=== PATIENT | male | born 1970 | race Caucasian/White ===

== ENCOUNTER 2024-07-13 09:31 | Outpatient (CLI) | payer OTHER, SELFPAY ==
[2024-07-13 18:30] LABS: Basophils % 0.7 % (0.1-2.0); Eosinophils # 0.2 Kmm3 (0.0-0.4); Eosinophils % 3.8 % (0.1-12.0); Hemoglobin 8.2 g/dL (14.1-18.0); Immature Granulocytes # 0.01 10^3uL; Immature Granulocytes % 0.2 %; Lymphocytes # 1.4 K/mm3 (0.7-4.5); Lymphocytes % 33.9 % (10-50); Mean Corpuscular HGB Conc 37.3 g/dL (31.8-35.4); Mean Corpuscular Hemoglobin 39.6 pg (27.0-31.2); Mean Corpuscular Volume 106.3 fl (80-94); Mean Platelet Volume 11.2 fl (7.4-10.4); Monocytes # 0.4 K/mm3 (0.1-1.0); Monocytes % 9.1 % (1.7-9.3); Neutrophils # 2.2 K/mm3 (1.8-7.8); Neutrophils % 52.3 % (37.0-80.0); Nucleated Red Blood Cells # 0 10^3/uL; Nucleated Red Blood Cells % 0 %; Platelet Count 70 K/mm3 (142-424); Red Blood Count 2.07 M/mm3 (4.60-6.20); Red Cell Distribution Width 16.7 % (11.5-17.5); Red Cell Distribution Width-SD 63.8 fL; White Blood Count 4.2 K/mm3 (4.8-10.8)
[2024-07-13 19:54] LABS: Alanine Aminotransferase 15 U/L (12-78); Albumin Level 2.7 g/dl (3.5-5.0); Anion Gap 10.4 mEq/L (5-15); Aspartate Amino Transferase 44 U/L (17-59); Bilirubin,Total 0.6 mg/dl (0.2-1.3); Blood Urea Nitrogen 6 mg/dl (9-20); Calcium 7.8 mg/dl (8.4-10.2); Carbon Dioxide 22 mmol/L (22.0-30.0); Chloride 100 mmol/L (98-107); Estimated Glomerular Filt Rate 118 ml/min (>60); GFR (African American) 143 ML/MIN (>60); Globulin 3.3 g/dL (1.3-3.2); Glucose 78 mg/dl (74-100); Potassium 4.4 mmoL/L (3.5-5.1); Sodium 128 mmol/L (136-145)
[2024-07-13 19:55] LABS: Albumin/Globulin Ratio 0.8 (1.1-1.8); Alkaline Phosphatase 195 U/L (38-126); Chol/HDL Ratio 4.3 (1-3.5); Cholesterol 65 mg/dl (140-200); HDL Cholesterol 15 mg/dl (40-60); Triglycerides 124 mg/dl (30-150); VLDL Cholesterol 25 mg/dL (0-40)
[2024-07-13 20:06] LABS: Direct LDL Cholesterol 32.24 mg/dL (100-129)
[2024-07-13 20:26] LABS: Prostate Specific Ag Screen 0.9 ng/ml (0.0-4.0); Thyroid Stimulating Hormone 3.87 uIU/mL (0.465-4.68)
[2024-07-13 20:45] LABS: Vitamin B12 775 pg/mL (239-931)
[2024-07-18 06:15] LABS: Hemoglobin A1C < 4.2 % (4.0-6.0)
== END 2024-07-13 23:59 | disposition home or self-care (01) ==
LOC: LAB.DROPOF 07-16 09:32
PROVIDERS: PCP Family Medicine; Visit Provider Family Medicine
DX: M79.89 Other specified soft tissue disorders (principal); K22.70 Barrett's esophagus without dysplasia; R10.9 Unspecified abdominal pain; R63.4 Abnormal weight loss
CPT/HCPCS: 80053; 80061; 82607; 83036; 84443; 85025; G0103

== ENCOUNTER 2024-08-01 07:33 | Outpatient (CLI) | payer OTHER, SELFPAY ==
--- OUTSIDE RECORDS SUMMARY | 2024-08-01 07:35 | XMS_ITS | Clinical Summary ---
Author Organization [facility] [place] [address] Care Team Providers Care Mud Mixer Operator Name Role Phone Unavailable Primary Care Provider Unavailabl e Social History Tobacco Use Types Packs/Day Years Used Date Smoking Tobacco: Never Assessed Sex and Gender Information Value Date Recorded Sex Assigned at Not on file Legal Sex Male 4:05 PM EDT Gender Identity Not on file Sexual Orientation Not on file Plan of Treatment Health Maintenance Due Date Last Done Comments Annual Wellness Exam 1973 DTaP/TDaP/Td (1 - Tdap) 1989 Hepatitis B Vaccine (1 of 3 - 19+ 3-dose series) 1989 Cologuard 11/16/2015 Colon Cancer Screening 11/16/2015 Colonoscopy 11/16/2015 FIT 11/16/2015 Sigmoidoscopy 11/16/2015 Virtual Colonography 11/16/2015 Pneumococcal Vaccine 50+ (1 of 1 - PCV) 2020 Zoster (1 of 2) 2020 COVID-19 Vaccine (1 - 2023-2 5 season) 2023 Influenza Vaccine (Season Ended) 2024 Meningococcal B Vaccine Aged Out No l onger eligible based on patient's age to complete this topic
--- OUTSIDE RECORDS SUMMARY | 2024-08-01 07:35 | XMS_ITS | Clinical Summary ---
Author Organization Healthcare Address [address] [place] [address] Care Team Providers Care Die Engraver Name Role Phone Earnest Monroe MD Primary Care Provider [phone] Family History Medical History Relation Name Comments Conversions - Other Father Hepatiti s C reactive Other cancer Maternal Grandmother Diabetes Mother Conversions - Other Mother's Sister 1 Can cer of bone Breast cancer Mother's Sister 2 Relation Name Status Comments Father Maternal Grandmother Mother Mother's Sister 1 Mother's Sister 2 Social History Tobacco Use Types Packs/Day Years Used Date Smoking Tobacco: Every Day Alcohol Use Standard Drinks/Week Comments Yes 0 (1 standard drink = 0.6 oz pure alcohol) Alcoholic Drinks/day: Moderate alcohol use Sex and Gender Information Value Date Recorded Sex Assigned at Not on file Legal Sex Male 6:30 PM EDT Gender Identity Not on file Sexual Orientation Not on file Last Filed Vital Signs Vital Sign Reading Time Taken Comments Blood Pressure - - Pulse - - Temperature - - Respiratory Rate - - Oxygen Saturation - - Inhaled Oxygen Concentration - - Weight 73 kg (161 lb) 10/17/2013 1:42 PM EDT Height 180.3 cm (5' 11 ) 10/17/2013 1:42 PM EDT Body Mass Index 22.46 10/17/2013 1:42 PM EDT Plan of Treatment Not on file Care Teams Die Engraver Relationship Specialty Start Date End Date Earnest Monroe MD [address] [place] [id number] PCP - General 06/27/20
[2024-08-01] MEDS: IOPAMIDOL-370 (76%);100ML BOTTLE 75 ML IV (07:56)
[2024-08-01] MEDS: SODIUM CHLORIDE 0.9% 10ML SYR (RAD ONLY) 10 ML IV (07:56)
[2024-08-01] MEDS: BARIUM SULFATE(READI-CAT2);450ML BOTTLE 450 ML PO (07:56)
--- NOTE | 2024-08-01 08:00 | CT_ITS ---
FINAL REPORT TECHNIQUE: The patient was injected with IV contrast. Axial images were obtained of the chest by computed tomography. Precontrast images were also obtained. This study was performed with techniques to keep radiation doses as low as reasonably achievable (ALARA). Individualized dose reduction techniques using automated exposure control or adjustment of mA and/or kV according to the patient's size were employed. CLINICAL HISTORY: wt loss; acuña s esophagus; abd. pain COMPARISON: None FINDINGS: CT OF THE CHEST WITH AND WITHOUT CONTRAST: Pre infusion images demonstrate calcified right hilar and precarinal lymph nodes. Post infusion images demonstrate the mediastinal vasculature enhances in a proper fashion. Heart size is normal. There is no pericardial or pleural effusion identified. There is a small noncalcified irregular density in the posterior right upper lobe measuring 7 mm on image 30 of series 8. Scarring is noted at the right lung base. IMPRESSION: Irregular density posterior right upper lobe. Recommend follow-up CT scan in 3 months per Fleischner criteria. Reviewed, Interpreted and Dictated by Chico Shell MD Transcribed by Veronique Meier Authenticated and . [facility]
--- NOTE | 2024-08-01 08:45 | CT_ITS ---
FINAL REPORT TECHNIQUE: Pre-and postcontrast axial CT images of the abdomen and pelvis were obtained. Coronal reformatted images were also obtained and reviewed. This study was performed with techniques to keep radiation doses as low as reasonably achievable (ALARA). Individualized dose reduction techniques using automated exposure control or adjustment of mA and/or kV according to the patient's size were employed. CLINICAL HISTORY: wt loss; Alfredo s esophagus; abd. pain COMPARISON: None FINDINGS: Pre infusion images demonstrate no evidence of kidney stones. On post infusion images, the liver is homogeneous. The gallbladder is unremarkable. Calcified granulomas are seen in the spleen. The pancreas, adrenal glands, and kidneys are unremarkable. There is diffuse mucosal thickening throughout the colon consistent with acute infectious/inflammatory colitis. The appendix is unremarkable. The urinary bladder is unremarkable. IMPRESSION: Acute infectious/inflammatory colitis. Reviewed, Interpreted and Dictated by Chico Shell MD Transcribed by Veronique Meier Authenticated and [facility]
== END 2024-08-01 23:59 | disposition home or self-care (01) ==
LOC: RAD 07:33
PROVIDERS: PCP Family Medicine; Visit Provider Family Medicine
DX: A09 Infectious gastroenteritis and colitis, unspecified (principal); R91.8 Other nonspecific abnormal finding of lung field; K22.70 Barrett's esophagus without dysplasia; R63.4 Abnormal weight loss
CPT/HCPCS: 71270; 74178; Q9967

== ENCOUNTER 2024-09-05 19:10 | Outpatient (CLI) | payer OTHER, SELFPAY ==
[2024-09-05 19:13] LABS: Adenovirus F 40/41, stool Not Detected (NotDetected); Clostridium Difficile A/B, PCR Not Detected (NotDetected); Cyclospora Cayetanesis Not Detected (NotDetected); Plesimonas Shigalloides, PCR Not Detected (NotDetected); Salmonella, PCR Not Detected (NotDetected); Shiga-like toxin E coli Not Detected (NotDetected); Shigella Enterovasive E coli Not Detected (NotDetected); Vibrio, PCR Not Detected (NotDetected); Yersinia Entercolitica, PCR Not Detected (NotDetected)
--- OUTSIDE RECORDS SUMMARY | 2024-09-11 12:07 | XMS_ITS | Clinical Summary ---
Author Organization [facility] [place] [address] Care Team Providers Care Busser Name Role Phone Unavailable Primary Care Provider [...] - 2023-2 5 season) 2023 Influenza Vaccine (#1) 2024 Meningococcal B Vaccine Aged Out No l onger eligible based on patient's age to complete this topic
--- OUTSIDE RECORDS SUMMARY | 2024-09-11 12:07 | XMS_ITS | Clinical Summary ---
Author Organization Healthcare Address [address] [place] [address] Care Team Providers Care Entry Engineer Name Role Phone Earnest Monroe MD Primary Care Provider [phone] Family History Medical History Relation Name Comments [...] of Treatment Not on file Care Teams Entry Engineer Relationship Specialty Start Date End Date Earnest Monroe MD [address] [place] [id number] PCP - General 06/27/20
== END 2024-09-05 23:59 | disposition home or self-care (01) ==
LOC: LAB.DROPOF 09-11 12:05
PROVIDERS: PCP Nurse Practitioner Family; Visit Provider Nurse Practitioner Family
DX: R19.7 Diarrhea, unspecified (principal)

== ENCOUNTER 2024-09-20 11:05 | Day surgery (SDC) | payer OTHER, SELFPAY ==
[2024-09-11 10:52] VITALS: BMI 17.0
[2024-09-20 12:06] VITALS: BP 148/80; PULSE 84; RESP 18; TEMP 36.8; O2SAT 98
[2024-09-20] MEDS: LACTATED RINGERS 1000ML 1,000 ML 50 ML IV (12:17)
--- NOTE | 2024-09-20 12:46 | EXP.HP ---
History of Present Illness *Admission Date: 09/20/24 *History of present illness: Mrs. Hebert is a 53-year-old female who is here for diagnostic EGD and colonoscopy. 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 She has had a 50 pound weight loss over the last couple of years with reduced appetite. She does state that she is gastric discomfort. She began having diarrhea about a year ago and does have some fecal incontinence with urgency. Her CAT scan showed mucosal thickening throughout the colon. The examination is deemed medically necessary for diagnostic EGD and colonoscopy. The patient has been seen, interviewed and examined prior to the procedure by both myself and the anesthesia provider. [facility] Disclaimer: The information contained in this section may have been updated after the patient was seen, as this information can be updated by other users. Medical History (Updated 09/20/24 @ 12:47 by Rancho Pereyra II, MD) Protein calorie malnutrition Abdominal pain Barretts esophagus Weight loss Surgical History No significant past surgical history Family History Other Cancer Diabetes Hypertension Social History (Updated 09/20/24 @ 12:58 by Oniel Lorenz CRNA) Smoking Status: Current every day smoker tobacco type: cigarettes alcohol intake: current alcohol intake frequency: 3 or more drinks per day substance use type: denies use current occupational status: unemployed Travel in the last 8 weeks?: None caffeine: No Have you lived/traveled outside US in past 30 days?: No Contact w/someone who lives/traveled outside US past 30 days?: No Exposure to someone with infectious disease in past 14 days?: No Do you have a fever (greater than 100.4 F or 38 C)?: No Have you tested positive for COVID-19?: No Exposed to someone with COVID-19 in past 14 days?: No Do you have a sore throat?: No Do you have a cough?: No Do you have any weakness?: No Are you experiencing any nausea/vomitting?: No Do you have any diarrhea?: No Are you experiencing any unusual bleeding?: No Do you have any muscle aches/pain?: No Do you have any abdominal pain?: No Are you experiencing loss of taste or smell?: No Other Medical History Have you received the Flu Vaccine for this season: No Review of Systems Review of Systems Review of systems (narrative): Negative *Cardiovascular Comments: Negative *Gastrointestinal Comments: Negative *Genitourinary Comments: Negative *Musculoskeletal Comments: Negative *Neurologic Comments: Negative Meds Home Medications and Allergies Home Medications ?Medication ?Instructions ?Recorded ?Confirmed ?Type albuterol sulfate 90 mcg/actuation 2 puff inhalation QID PRN 07/13/24 09/20/24 Rx aerosol inhaler shortness of breath or wheezing #8.5 grams pantoprazole 40 mg tablet,delayed 40 mg PO DAILY #90 tabs 07/13/24 09/20/24 Rx release (Protonix) New Prescriptions to Start Prescriptions: Allergies Allergy/AdvReac Type Severity Reaction Status Date / Time No Known Allergies Allergy Verified 09/20/24 12:04 Exam Data for Last 24 hours Vital signs and Labs for Last 24 Hours: Temp Pulse Resp BP Pulse Ox O2 Del Method 98.2 F 84 18 148/80 H 98 Room Air 09/20/24 12:06 09/20/24 12:06 09/20/24 12:06 09/20/24 12:06 09/20/24 12:06 09/20/24 12:06 *Routine HEENT Exam Head: Present normocephalic Eye: Present EOMI and PERRL ENT: Present mucous membranes moist *Routine Neck Exam Neck: Present supple *Routine Respiratory Exam Respiratory: Present CTA bilaterally *Routine Cardiovascular Exam Cardiovascular: Present RRR *Routine Abdominal Exam Abdominal: Present soft and normoactive bowel sounds; Absent tenderness *Routine Rectal Exam Rectal:: deferred *Routine Genitalia Exam Genitalia:: deferred *Routine Extremities Exam Extremities: Absent cyanosis, clubbing or edema *Routine Skin Exam Skin: Present warm; Absent rash *Routine Neurological Exam Neurological: Present alert and oriented X3 Assessment and Plan *Assessment and plan (1) Diarrhea: Status: Acute Category: Medical Code(s): R19.7 - Diarrhea, unspecified (2) Change in bowel habits: Status: Acute Category: Medical Code(s): R19.4 - Change in bowel habit (3) Loss of appetite: Status: Acute Category: Medical Code(s): R63.0 - Anorexia (4) Barretts esophagus: Status: Acute Category: Medical Code(s): K22.70 - Alfredo's esophagus without dysplasia (5) Weight loss: Status: Acute Category: Medical Code(s): R63.4 - Abnormal weight loss (6) Abdominal pain: Status: Acute Category: Medical Code(s): R10.9 - Unspecified abdominal pain (7) Abnormal CT scan, colon: Status: Acute Category: Medical Code(s): R93.3 - Abnormal findings on diagnostic imaging of other parts of digestive tract Plan A/P: 1. Alfredo's esophagus with loss of appetite and abdominal pain for upper endoscopy and change in bowel habits, diarrhea and abnormal CAT scan of colon for colonoscopy is the preprocedural diagnosis. The patient will be anesthetized/sedated using MAC sedation. The patient has been seen and examined. Cardiac and lung assessment prior to the examination is stable. Proceed with planned diagnostic EGD and colonoscopy.
--- NOTE | 2024-09-20 12:58 | P.PNANES_ITS ---
[facility] Disclaimer: The information contained in this section may have been updated after the patient was seen, as this information can be updated by other users. Medical History (Updated 09/20/24 @ 12:47 by Rancho Pereyra II, MD) Protein calorie malnutrition Abdominal pain Barretts esophagus Weight loss Surgical History No significant past surgical history Family History Other Cancer Diabetes Hypertension Social History (Updated 09/20/24 @ 12:15 by Barby Umaña, SHERIN) Smoking Status: Current every day smoker tobacco type: cigarettes alcohol intake: current alcohol intake frequency: 3 or more drinks per day substance use type: denies use current occupational status: unemployed Travel in the last 8 weeks?: None caffeine: No [facility] Anesthesia Checklist Patient Identification Patient Identification: Arm Band Structural Data Admitted From: Home Planned Operative Procedure/s: EGD/Colonoscopy Consent for Planned Operative Procedure(s) Verified: Yes Verified Documents: Surgical Consent and History and Physical NPO Status Verified Time NPO: 00:00 Additional verifications Anesthesia Reactions: No Airway Assessment Mallampati Score:: Class II C-Spine Mobility Assessed: Yes TMJ Mobility Assessed: Yes Dentition: Edentulous Neurological Assessment Level of Consciousness: Awake, Alert and Appropriate Anesthesia Plan Anesthesia Risk discussed: Yes Anesthesia Plan: Verified ASA Class: II Anesthesia Type: MAC
--- NOTE | 2024-09-20 13:01 | HMH.PROCNOTE ---
[facility] Procedure Note Date: 09/20/24 Procedure Note:: Upper Endoscopy Procedure Report: Esophagogastroduodenoscopy with cold biopsies Endoscopost: Rancho Pereyra II, MD Referring Physician: Desmond Donohue MD Date of Procedure: September 20, 2024 Equipment: Olympus GIF-1100 standard upper endoscope Sedation: MAC sedation Indications: Mr. Hebert is a 53-year-old gentleman who is here for diagnostic EGD and colonoscopy. The patient does have a history of Alfredo's esophagus diagnosed approximately 15 years ago. His last EGD was with Dr. Jose Roberts M.D. in 2018. He has been on pantoprazole. The patient reports a marked weight loss and was 175 pounds and is now around 120 pounds (greater than 50 pound weight loss) over the last couple of years. He has had a loss of appetite. He does state that he has some postprandial abdominal pain if he eats a large volume. He does have early satiety but no dysphagia. He does report frequent diarrhea that started about a year ago. He has fecal urgency with intermittent fecal incontinence. He reports no rectal bleeding or family history of colitis or Crohn's disease. He reports no family history of colon cancer. Procedure: Prior to the procedure, a history and physical exam was performed, and patient's medications and allergies were reviewed. The risks, benefits and alternatives of the sedation and procedure were discussed with the patient. All questions were answered and informed consent was obtained. The patient was brought to the procedure room. Patient identification and proposed procedure were verified by the physician and the nurse. The patient was placed in a left lateral decubitus position and the scope was passed under direct vision. Throughout the procedure, the patient's blood pressure, pulse, and oxygen saturations were monitored continuously. The upper GI endoscopy was accomplished without difficulty. The patient tolerated the procedure well. Findings: The scope was passed directly into the upper esophagus and advanced to the third portion of the duodenum. A cold biopsy was taken from the second portion of the duodenum for the disaccharidase assay. The post bulbar duodenum and duodenal bulb were normal with normal mucosa and conniventes. Cold biopsies were taken from the first portion of duodenum and duodenal bulb to rule out celiac disease. The scope was withdrawn through a normal duodenal bulb and pylorus into the stomach. There was some mild chronic gastritis of the proximal stomach. There was also some blanching of the stomach during the exam suggestive of a vascular abnormality and possibly mesenteric arterial blood supply. Upon retroflexion there was a 3 cm hiatal hernia. The scope was then withdrawn into the esophagus. There was evidence of Alfredo's esophagus which was C2M4 ([place] classification) and directed biopsies were obtained using NBI. There was no evidence of reflux esophagitis. The remainder of the esophageal mucosa was normal. Impression: 1. Alfredo's esophagus (C2M4 [place] classification) 2. Medium sized 3 cm hiatal hernia 3. Chronic gastritis 4. Blanching of the gastric mucosa suggestive of thready mesenteric arterial supply (possible chronic mesenteric ischemia) Plan: I will follow-up the biopsies. I will also obtain CT angiography of the mesenteric vessels. I will proceed with diagnostic colonoscopy.
--- NOTE | 2024-09-20 13:15 | P.PCN_ITS ---
[facility] Procedure Note Date: 09/20/24 Time: 13:30 Procedure Note:: Colonoscopy Procedure Report: Colonoscopy with cold snare polypectomy and cold biopsies Endoscopist: Rancho Pereyra II, MD Referring physician: Desmond Donohue MD Date of Procedure: September 20, 2024 Equipment: Olympus [id number] adult colonoscope Sedation: MAC sedation Indication: Mr. Hebert is a 53-year-old gentleman who is here for diagnostic EGD and colonoscopy. The patient does have a history of Alfredo's esophagus diagnosed approximately 15 years ago. His last EGD was with Dr. Jose Roberts M.D. in 2018. He has been on pantoprazole. The patient reports a marked weight loss and was 175 pounds and is now around 120 pounds (greater than 50 pound weight loss) over the last couple of years. He has had a loss of appetite. He does state that he has some postprandial abdominal pain if he eats a large volume. He does have early satiety but no dysphagia. He does report frequent diarrhea that started about a year ago. He has fecal urgency with intermittent fecal incontinence. He reports no rectal bleeding or family history of colitis or Crohn's disease. He reports no family history of colon cancer. This is the patient's first colonoscopy. The patient's CAT scan of the abdomen pelvis showed evidence of mucosal thickening throughout the colon suggestive of colitis. The patient's CAT scan of the chest did show an irregular density in the right upper lobe with recommendations of repeat imaging in 3 months (October 2024). The patient is a chronic long-term smoker. Procedure: Prior to the procedure, a history and physical exam was performed, and patient's medications and allergies were reviewed. The risks, benefits and alternatives of the sedation and procedure were discussed with the patient. All questions were answered and informed consent was obtained. The patient was brought to the procedure room. Patient identification and proposed procedure were verified by the physician and the nurse. The patient was placed in a left lateral decubitus position and the scope was passed under direct vision. Throughout the procedure, the patient's blood pressure, pulse, and oxygen saturations were monitored continuously. The colonoscopy was accomplished without difficulty. The patient tolerated the procedure well. Findings: On digital rectal examination there was normal rectal tone. There were no external hemorrhoids. The prostate was 2+, smooth, soft, symmetric without nodules. The colonoscope was introduced through the anal canal to the rectum and advanced to the cecum. The ileocecal valve and appendiceal orifice were identified. The scope was advanced a short distance into the ileum which appeared grossly normal. The scope was then withdrawn into the colon. The cecum, ascending, transverse and descending colon were normal. Random cold biopsies were taken from the right colon to rule out microscopic colitis. There were 2 polyps (sigmoid x 1 (6 to 7 mm) and rectosigmoid x 1 (9 mm)) in both of these were removed via cold snare polypectomy. Both were placed in the sigmoid formalin jar. The rectum itself was normal with no mucosal abnormalities. Upon retroflexion within the rectum there were grade 1-2 internal hemorrhoids. The preparation was excellent throughout with [place] Preparation Score of 9. The cecal time was 12 minutes. Impression: 1. Colonic polyps x 2 (6 and 9 mm) Plan: I will follow-up the polyp histology as well as the random biopsies to rule out microscopic colitis. I do feel it is weight loss may be related to some mesenteric vascular flow. This could also be related to pulmonary cachexia. The patient does have COPD. I would recommend repeat CT imaging of the chest as recommended in October. I will discuss the findings with the patient and family.
[2024-09-20 13:29] VITALS: BP 116/75; PULSE 116; RESP 18; TEMP 36.4; O2SAT 100
[2024-09-20 13:39] VITALS: BP 137/86; PULSE 112; RESP 16; O2SAT 100
[2024-09-20 13:49] VITALS: BP 121/67; PULSE 96; RESP 16; O2SAT 99
[2024-09-20 13:59] VITALS: BP 136/83; PULSE 90; RESP 16; O2SAT 99
[2024-09-25 16:13] LABS: Interpretation Notes (.); Lactase 1.62 (>/= 14.0); Maltase 400.6 (>/= 110.0); Palatinase 34.24 (>/= 8.5); Reference Notes (.); Sucrase 171.85 (>/= 25.0)
== END 2024-09-20 14:09 | disposition home or self-care (01) ==
PROVIDERS: PCP Family Medicine; Visit Provider Internal Medicine Gastroenterology
PROC: 0DJ08ZZ Inspection of Upper Intestinal Tract, Via Natural or Artificial Opening Endoscopic (ICD-10-PCS; CPT 45378; principal; 2024-09-20 12:30)
DX: K22.70 Barrett's esophagus without dysplasia (principal); K29.50 Unspecified chronic gastritis without bleeding; K44.9 Diaphragmatic hernia without obstruction or gangrene; D12.5 Benign neoplasm of sigmoid colon; F17.210 Nicotine dependence, cigarettes, uncomplicated; Z79.899 Other long term (current) drug therapy
CPT/HCPCS: 43239; 45380; 45385; 82657; J2003; J2704; J7120

== ENCOUNTER 2024-11-05 15:48 | Outpatient (CLI) | payer OTHER, SELFPAY ==
--- OUTSIDE RECORDS SUMMARY | 2024-11-05 15:50 | XMS_ITS | Clinical Summary ---
Author Organization Healthcare Address [address] [place] [address] Care Team Providers Care Boiler Shop Mechanic Name Role Phone Earnest Monroe MD Primary Care Provider [phone] Family History Medical History Relation Name Comments [...] of Treatment Not on file Care Teams Boiler Shop Mechanic Relationship Specialty Start Date End Date Earnest Monroe MD [address] [place] [id number] PCP - General 06/27/20
--- OUTSIDE RECORDS SUMMARY | 2024-11-05 15:50 | XMS_ITS | Clinical Summary ---
Author Organization [facility] [place] [address] Care Team Providers Care Stapling Machine Operator Name Role Phone Unavailable Primary Care [...] COVID-19 Vaccine (1 - 2023-2 5 season) 2024 Influenza Vaccine (#1) 2024 Meningococcal B Vaccine Aged Out No l onger eligible based on patient's age to complete this topic
[2024-11-05 16:43] LABS: Hematocrit 23.1 % (42.0-52.0); Hemoglobin 8.0 g/dL (14.1-18.0); Immature Granulocytes % 0.4 %; Mean Corpuscular HGB Conc 34.6 g/dL (31.8-35.4); Mean Corpuscular Hemoglobin 39.8 pg (27.0-31.2); Mean Corpuscular Volume 114.9 fl (80-94); Nucleated Red Blood Cells % 0 %; Platelet Count 170 K/mm3 (142-424); Red Blood Count 2.01 M/mm3 (4.60-6.20); Red Cell Distribution Width-SD 63.8 fL; White Blood Count 4.9 K/mm3 (4.8-10.8)
[2024-11-05 16:47] LABS: Albumin Level 2.9 g/dl (3.5-5.0); Chloride 105 mmol/L (98-107); Potassium 4.6 mmoL/L (3.5-5.1); Sodium 137 mmol/L (136-145)
[2024-11-05 16:50] LABS: Alanine Aminotransferase 10 U/L (12-78); Albumin/Globulin Ratio 0.9 (1.1-1.8); Alkaline Phosphatase 181 U/L (38-126); Anion Gap 10.6 mEq/L (5-15); Aspartate Amino Transferase 32 U/L (17-59); Bilirubin,Total 0.8 mg/dl (0.2-1.3); Blood Urea Nitrogen 8 mg/dl (9-20); Calcium 8.5 mg/dl (8.4-10.2); Carbon Dioxide 26 mmol/L (22.0-30.0); Creatinine,Serum 0.90 mg/dl (0.66-1.25); Estimated Glomerular Filt Rate 88 ml/min (>60); GFR (African American) 107 ML/MIN (>60); Globulin 3.3 g/dL (1.3-3.2); Glucose 74 mg/dl (74-100); Total Protein,Serum 6.2 g/dl (6.3-8.2)
[2024-11-05 17:39] LABS: Hepatitis C Ab Qual. W/ RFX NEGATIVE (Negative)
[2024-11-06 06:24] LABS: Hepatitis B Surface Antigen Negative (Negative)
== END 2024-11-05 23:59 | disposition home or self-care (01) ==
LOC: LAB.DROPOF 15:48
PROVIDERS: PCP Family Medicine; Visit Provider Family Medicine
DX: M79.89 Other specified soft tissue disorders (principal); Z11.59 Encounter for screening for other viral diseases
CPT/HCPCS: 80053; 85025; 86803; 87340; 87389

== ENCOUNTER 2025-01-28 08:29 | Outpatient (CLI) | payer OTHER, SELFPAY ==
[2025-01-28 14:56] LABS: Hematocrit 26.1 % (42.0-52.0); Hemoglobin 9.6 g/dL (14.1-18.0); Immature Granulocytes % 0.2 %; Mean Corpuscular HGB Conc 36.8 g/dL (31.8-35.4); Mean Corpuscular Hemoglobin 37.6 pg (27.0-31.2); Mean Corpuscular Volume 102.4 fl (80-94); Nucleated Red Blood Cells % 0 %; Platelet Count 77 K/mm3 (142-424); Red Blood Count 2.55 M/mm3 (4.60-6.20); Red Cell Distribution Width-SD 46.1 fL; White Blood Count 4.6 K/mm3 (4.8-10.8)
[2025-01-28 15:45] LABS: Alanine Aminotransferase 16 U/L (12-78); Albumin Level 4.3 g/dl (3.5-5.0); Albumin/Globulin Ratio 1.2 (1.1-1.8); Alkaline Phosphatase 174 U/L (38-126); Anion Gap 14.2 mEq/L (5-15); Aspartate Amino Transferase 34 U/L (17-59); Bilirubin,Total 0.6 mg/dl (0.2-1.3); Blood Urea Nitrogen 12 mg/dl (9-20); Calcium 8.8 mg/dl (8.4-10.2); Carbon Dioxide 17 mmol/L (22.0-30.0); Chloride 102 mmol/L (98-107); Creatinine,Serum 1.10 mg/dl (0.66-1.25); Estimated Glomerular Filt Rate 70 ml/min (>60); GFR (African American) 84 ML/MIN (>60); Globulin 3.5 g/dL (1.3-3.2); Glucose 73 mg/dl (74-100); Iron 86 ug/dL (49-181); Potassium 4.2 mmoL/L (3.5-5.1); Sodium 129 mmol/L (136-145); Total Protein,Serum 7.8 g/dl (6.3-8.2)
[2025-01-28 16:01] LABS: Total Iron Binding Capacity 265 ug/dL (261-462)
[2025-01-28 16:16] LABS: Ferritin 311 ng/ml (17.9-464)
--- OUTSIDE RECORDS SUMMARY | 2025-01-30 08:35 | XMS_ITS | Clinical Summary ---
Author Organization [facility] [place] [address] Care Team Providers Care Analytics Architect Name Role Phone Unavailable Primary Care Provider [...] of 2) 2020 COVID-19 Vaccine (1 - 2024-2 6 season) 2024 Influenza Vaccine (#1) 2024 Meningococcal B Vaccine Aged Out No l onger eligible based on patient's age to complete this topic
--- OUTSIDE RECORDS SUMMARY | 2025-01-30 08:35 | XMS_ITS | Clinical Summary ---
Author Organization Healthcare Address [address] [place] [address] Care Team Providers Care Control Systems Specialist Name Role Phone Earnest Monroe MD Primary Care Provider [phone] Family History Medical History Relation Name Comments [...] of Treatment Not on file Care Teams Control Systems Specialist Relationship Specialty Start Date End Date Earnest Monroe MD [address] [place] [id number] PCP - General 06/27/20
== END 2025-01-28 23:59 | disposition home or self-care (01) ==
LOC: LAB.DROPOF 01-30 08:30
PROVIDERS: PCP Family Medicine; Visit Provider Family Medicine
DX: D64.9 Anemia, unspecified (principal); M25.551 Pain in right hip; R93.89 Abnormal findings on diagnostic imaging of other specified body structures
CPT/HCPCS: 80053; 82728; 83540; 83550; 85025